=== PATIENT | female | born 1940 ===

== ENCOUNTER 2021-02-22 13:00 | Outpatient (CLI) | payer OTHER ==
[~2021-02-22 13:00] MED LIST: ATENOLOL50 MG PO; HYZAAR 50-12.1 UDTAB PO; LEVOTHYROXINE; ULTRACEP
[2021-02-23] MEDS ORDERED: ELIQUIS2.5 MG (11:28)
== END 2021-02-22 15:00 | disposition home or self-care (01) ==
LOC: ASH CLINIC 13:00
PROVIDERS: ATTEND Internal Medicine
DX: Z23 Encounter for immunization (principal); U07.1 COVID-19

== ENCOUNTER 2021-02-23 10:35 | Emergency (ER) | payer OTHER ==
[~2021-02-23] VITALS: Ht 160 cm; Wt 50.3 kg
[2021-02-23] MEDS ORDERED: ELIQUIS2.5 MG (11:28)
== END 2021-02-23 19:33 | disposition home or self-care (01) ==
LOC: ER 10:35
DX: R20.0 Anesthesia of skin (principal); M25.59 Pain in other specified joint; R05 Cough; R53.81 Other malaise; R53.1 Weakness; R42 Dizziness and giddiness; T50.995A Adverse effect of other drugs, medicaments and biological substances, initial encounter; Y92.89 Other specified places as the place of occurrence of the external cause; Z20.822 Contact with and (suspected) exposure to COVID-19